=== PATIENT | male | born 1960 | race American Indian/Alaskan Native ===

== ENCOUNTER 2019-07-15 16:22 | Emergency (ER) | payer SELFPAY ==
--- NOTE | 2019-07-15 16:37 | Emergency Department Report ---
HPI - General Time Seen by Provider: 07/15/19 16:27 - HPI HPI: 59-year-old -[place] male presents to the emergency department via EMS from work in cardiac arrest. Apparently the patient stood up around 3:30 PM and was witnessed going unconscious and falling straight backwards and hitting his head. He was standing around some gravel rocks and there is a large laceration to the back of the head. The patient was in multiple different pulseless rhythms prior to arrival including V. fib in which he received a shock of 360 J. He also received 3 rounds of epinephrine, along with a Billy airway and chest compressions, as part of ACLS protocol. The patient arrived in our emergency department still pulseless and unresponsive. No past medical history is known by EMS. ED Past Medical Hx - Medications Home Medications: Home Medications Medication Instructions Recorded Confirmed Last Taken Type Unobtainable 07/15/19 07/15/19 Unknown History ED Review of Systems ROS: Stated complaint: CARDIAC ARREST Other details as noted in HPI Comment: Unobtainable due to pts medical conditions Physical Exam - Physical Exam Physical Exam: GENERAL: Patient is ill-appearing and unresponsive. HENT: Normocephalic. There appears to be a large posterior scalp laceration but no current bleeding. EYES: Pupils are fixed and dilated. NECK: Supple. Trachea appears midline. CHEST/LUNGS: There are no spontaneous respirations. HEART/CARDIOVASCULAR: There are no spontaneous heart sounds. ABDOMEN: Abdomen is soft. There is no abdominal distention. SKIN: Skin is cool but dry. NEURO: Unresponsive. Does not withdraw to painful stimuli. Does not follow any commands. MUSCULOSKELETAL: There is no obvious deformity. There is no evidence of acute injury. No palpable femoral or radial pulses. ED Medical Decision Making - Medical Decision Making This patient presents to the emergency department as a cardiac arrest from work. Originally he stood up and then was witnessed going unconscious. Unknown if there was bystander CPR but CPR was initiated when the police arrived before EMS took over and initiated ACLS protocol. He had arty received 3 rounds of epinephrine, had chest compressions, a Billy airway and a 360 J defibrillation done prior to arrival. Once the patient got to the emergency department, he was switched over to our gurney and chest compressions were immediately continued. He also received some bag valve ventilation through the Billy airway. He received epinephrine and sodium bicarbonate. During his first rhythm check the patient appeared to be in V. fib and a 360 J defibrillation was given. The patient had a total of 3 rounds of CPR including epinephrine each round and the patient remained in asystole from that point on. I took the bedside ultrasound and looked at the patient heart but there was no movement, squeeze or even fibrillation. Time of was called at 1618. - Differential Diagnosis CVA, TN, PE, dysrhythmia Critical Care Time: Yes Critical care time in (mins) excluding proc time.: 20 Critical care attestation.: If time is entered above; I have spent that time in minutes in the direct care of this critically ill patient, excluding procedure time. Critical care time was spent on this patient and doing his initial evaluation, supervision of ACLS protocol. Critical Care Time: 20 minutes ED Disposition Clinical Impression: Cardiopulmonary arrest, Cardiac arrest Acute respiratory failure Qualifiers: Respiratory failure complication: unspecified whether with hypoxia or hypercapnia Qualified Code(s): J96.00 - Acute respiratory failure, unspecified whether with hypoxia or hypercapnia Disposition: DC-20 Is pt being admited?: No
== END 2019-07-15 18:00 ==
LOC: ED 16:22
DX: I46.9 Cardiac arrest, cause unspecified (principal)
CPT/HCPCS: 92950